=== PATIENT | male | born 1995 | race Caucasian/White ===

== ENCOUNTER 2016-08-13 20:07 | Emergency (ER) | payer OTHER ==
[2016-08-13] MEDS ORDERED: Lidocaine 1% 20 ML MDV INJECT ONE (20:44)
[2016-08-13] MEDS ORDERED: Bacitracin Oint 1 GM U/D Packet TOP ONE (20:45)
--- NOTE | 2016-08-13 21:42 | EDM.PDOC ---
ED HPI Trauma - General Chief Complaint: Upper Extremity Injury/Pain Stated Complaint: CUT ON RIGHT HAND Time Seen by Provider: 08/13/16 20:44 Source: Reports: Patient History Limitations: Reports: No limitations - History of Present Illness INITIAL COMMENTS - FREE TEXT/NARRATIVE: HISTORY AND PHYSICAL: History of present illness: [20-year-old male with no significant medical history now with laceration over right fifth MCP joint on the dorsum of his hand. Patient was working hard at his job at an [employer] when he hit on some metal and it cut his hand. He is able to flex and extend his finger normally all joints with normal strength. He states his tetanus is up-to-date. Was cut by a pipe no evidence of gross contamination of the wound. Review of systems: As per history of present illness and below otherwise all systems reviewed and negative. Past medical history: As per history of present illness and as reviewed below otherwise noncontributory. Surgical history: As per history of present illness and as reviewed below otherwise noncontributory. Social history: No reported history of drug or alcohol abuse. Family history: As per history of present illness and as reviewed below otherwise noncontributory. Physical exam: 3 centimeter laceration curved, over right fifth MCP. Normal flexion extension with normal strength of every joint in extension. No clinical evidence of tendon injury no visible tendon injury and the wound. HEENT: Normocephalic, atraumatic, pupils normal and symmetrical, supple neck, no meningismus, normal color Lungs: Normal and symmetrical chest wall excursion bilateral with no tachypnea or increased work of breathing, grossly normal chest exam Heart: No tachycardia in triage Abdomen: Normal-appearing, nondistended, no visible mass or asymmetry Pelvis: Normal-appearing Genitourinary: Deferred Rectal exam: Deferred Extremities: Atraumatic, normal use and range of motion, no visible evidence of gross neurovascular compromise Neuro: Awake, alert, oriented. Normal and appropriate mental status. Cranial nerves grossly unremarkable. Motor function normal. Nonfocal neurologic exam. Diagnostics: [X-ray right hand no foreign body no fracture [Procedure: Suture repair of wound 3 cm right hand dorsal aspect over right fifth MCP. 1% lidocaine infused good anesthetic effect. Patient underwent Doppler irrigation for 5 minutes after scrubbing with Hibiclens sponge before and during stroke compresses applied. six 4-0 Prolene sutures placed by md in route to. Good approximation and hemostasis. Patient tolerated well. No complication Impression: [Laceration Suture repair] Plan: [Uncomplicated laceration. Suture repair performed after extensive Doppler irrigation. Good approximation hemostatic patient tolerated well normal use. Neurovascularly intact. Discussed with patient will do prophylactic antibiotics given that he works a dirty environment but no gross contamination was appreciated and no radiographic foreign body. Patient aware of the possibility of occult foreign body not visible on x-ray.] Wound check 2 days with PCP and sutures out 10 days Definitive disposition and diagnosis as appropriate pending reevaluation and review of above. Allergies/ADRs: Allergies No Known Allergies Allergy (Verified 08/13/16 20:33) Home Medications: Ambulatory Orders Cephalexin [Keflex] 500 mg PO QID 5 Days 08/13/16 Past Medical History - Past Health History Medical/Surgical History: Denies Medical/Surgical History Other Musculoskeletal History: Fracture left collar bone, left hip (no surgeries done) Social & Family History - Family History Family Medical History: Noncontributory - Tobacco Use Smoking Status *Q: Current Every Day Smoker Years of Tobacco use: 8 Packs/Tins Daily: 1 Used Tobacco, but Quit: No Month Tobacco Last Used: 09/2014 Second Hand Smoke Exposure: Yes - Caffeine Use Caffeine Use: Reports: Energy drinks Caffeine Use Comment: 2drinks/day - Alcohol Use Days Per Week of Alcohol Use: 1 Number of Drinks Per Day: 2 Total Drinks Per Week: 2 - Recreational Drug Use Recreational Drug Use: No Drug Use in Last 12 Months: Yes Recreational Drug Type: Reports: Marijuana/Hashish Recreational Drug Use Frequency: Not Used In Over 6 Months Recreational Drug Last Use: more than 6 months, less than a year Review of Systems - Review of Systems Review Of Systems: See Below (Per history of present illness) Trauma Exam - Physical Exam Exam: See Below (Per history of present illness) Course - Vital Signs Last Recorded V/S: Last Vital Signs Temp 37.9 C 08/13/16 20:29 Pulse 122 H 08/13/16 20:29 Resp 19 08/13/16 20:29 BP 167/97 H 08/13/16 20:29 Pulse Ox 96 08/13/16 20:29 - Orders/Labs/Meds Orders: Active Orders 24 hr Category Date Time Status Hand 2V Rt [CR] Stat Exams 08/13/16 20:42 Taken Meds: Medications Discontinued Medications Generic Name Dose Route Start Last Admin Trade Name Ca PRN Reason Stop Dose Admin Bacitracin 1 dose 08/13/16 20:45 08/13/16 22:30 Bacitracin Oint 1 Gm TOP 08/13/16 20:46 1 dose ONETIME ONE Administration Cephalexin 500 mg 08/13/16 21:47 08/13/16 22:30 Keflex PO 08/13/16 21:48 500 mg ONETIME ONE Administration Lidocaine HCl 20 ml 08/13/16 20:44 08/13/16 22:29 Xylocaine 1% INJECT 08/13/16 20:45 20 ml ONETIME ONE Administration Departure - Departure Time of Disposition: 21:44 Disposition: Home, Self-Care 01 Condition: good Clinical Impression: Laceration of right hand Prescriptions: Cephalexin [Keflex] 500 mg PO QID 5 Days Instructions: Laceration Care, Adult, [id number] Referrals: PCP,None [Primary Care Provider] - Forms: ED Department Discharge Additional Instructions: Her wound is been repaired with removal sutures. Followup with your Dr. in 2 days for a wound check in 10 days for suture removal. You can return to the emergency department for suture removal and we'll not receive an additional pill or have to check in the emergency department. Finish Keflex as prescribed to prevent infection. Yesterday in your tetanus is up-to-date within 5 years. Verify this with your Dr. Keep the wound clean until healed return for signs of infection
[2016-08-13] MEDS ORDERED: Cephalexin 500 MG Cap PO ONE (21:47)
[2016-08-13 22:45] VITALS: BP 140/95
--- NOTE | 2016-08-16 16:04 | CR ---
EXAM DATE: 08/13/16 PATIENT'S AGE: 20 Patient: HUMZA MCRAE Facility: [place], [place] Site . Site : 1995 Study: XRay Extremity Right HAND [id number] 9:10:48 PM Ordering Physician: Sree Mosley Final Report: INDICATION: HAND PAIN, CRUSHING INJURY TECHNIQUE: Hand radiograph 2 views right COMPARISON: None FINDINGS: Bones: Alignment is normal. No acute fractures or aggressive bone lesions identified. Old fracture of the 5th metacarpal noted. Joint spaces: The carpal rows and visualized metacarpal and interphalangeal joints are normal in appearance. Soft tissues: Unremarkable. No radiopaque foreign bodies are seen. IMPRESSION: 1. No acute osseous injuries are noted. Dictated by: Royce Hamilton MD @ 08/13/2016 21:23:31 (Electronic Signature) Report Signed by Proxy. ELIZABETH
== END 2016-08-13 22:43 | disposition home or self-care (01) ==
LOC: MW.ED 20:07
DX: S61.216A Laceration without foreign body of right little finger without damage to nail, initial encounter (principal); F17.210 Nicotine dependence, cigarettes, uncomplicated; W26.8XXA Contact with other sharp object(s), not elsewhere classified, initial encounter; Y92.65 Oil rig as the place of occurrence of the external cause; Y99.0 Civilian activity done for income or pay
CPT/HCPCS: 12002; 73120; 99283; A9270

== ENCOUNTER 2023-11-27 12:45 | Emergency (ER) | payer BC, OTHER ==
[2023-11-27] MEDS: Ibuprofen 800 MG Tab PO ONE (13:41)
[2023-11-27] MEDS: Diphtheria,Pertussis(Acell),Tetanus Vaccine 0.5 ML Syringe IM ONE (13:42)
[2023-11-27] MEDS: Lidocaine 1% 5 ML VIAL INJECT ONE (13:42)
[2023-11-27 15:37] VITALS: BP 134/83; PULSE 84
[2023-11-27] MEDS ORDERED: Bacitracin Oint 28.35 GM Tube ONE (15:41)
[2023-11-27] MEDS: Bacitracin Oint 28.35 GM Tube TOP ONE (15:44)
== END 2023-11-27 15:54 | disposition home or self-care (01) ==
LOC: MW.ED 12:45
DX: S61.411A Laceration without foreign body of right hand, initial encounter (principal); Z23 Encounter for immunization; Z75.8 Other problems related to medical facilities and other health care; W22.8XXA Striking against or struck by other objects, initial encounter
CPT/HCPCS: 12001; 73130; 90471; 90715; 99283; A9270; J3490

== ENCOUNTER 2023-12-29 17:18 | Emergency (ER) | payer BC ==
[2023-12-29] MEDS: Lidocaine 1% 5 ML VIAL INJECT ONE (18:51)
[2023-12-29] MEDS: Acetaminophen/oxyCODONE 325-10 MG Tab PO ONE (19:09)
[2023-12-29] MEDS: Ondansetron 4 MG Tab.DIS PO ONE (19:09)
[2023-12-29] MEDS: Cephalexin 500 MG Cap PO ONE (20:04)
[2023-12-29] MEDS: Bacitracin Oint 1 GM U/D Packet TOP ONE (20:04)
[2023-12-29 20:19] VITALS: BP 151/95; PULSE 91
== END 2023-12-29 20:14 | disposition home or self-care (01) ==
LOC: MW.ED 17:18
DX: S62.662B Nondisplaced fracture of distal phalanx of right middle finger, initial encounter for open fracture (principal); F17.210 Nicotine dependence, cigarettes, uncomplicated; Z75.8 Other problems related to medical facilities and other health care; W23.1XXA Caught, crushed, jammed, or pinched between stationary objects, initial encounter
CPT/HCPCS: 64450; 73140; 99283; A9270; J3490